=== PATIENT | female | born 1950 | race Caucasian/White ===

== ENCOUNTER → 2016-12-10 | Outpatient (REF) | payer OTHER ==
[~2016-12-10] MED LIST: ASPI81TA11 PO; CETI10TA PO; DILA100C PO; HYDR12.55 PO; IRBE150T12 PO; ISOS30TA4 PO; LIDO5DIS36 TD; LUTE6TAB2 PO; POTA10CA PO; PRIM250T5 PO; REFRESH OU; ventolin inhaler INH
[2016-12-10 13:36] LABS: INR 1.03
== END ==
LOC: M LABDRAW1 12:49
PROVIDERS: ATTEND Physical Medicine & Rehabilitation
DX: Z01.812 Encounter for preprocedural laboratory examination (principal); M48.06 Spinal stenosis, lumbar region

== ENCOUNTER → 2017-03-20 | Outpatient (CLI) | payer MEDICARE ==
[~2017-03-20] MED LIST changes: +BREO1INH3 INH; +COMBAER6 INH; +FLON1SPR
--- NOTE | 2017-03-20 11:54 | REP ---
Chest two views HISTORY: Hypertension Comparison: 07/18/2016 An increase in interstitial markings is present in the lungs consistent with chronic interstitial fibrosis. The heart is normal in size. The pulmonary vasculature is normal in appearance. The bony structure is intact. IMPRESSION: Chronic interstitial fibrosis. Signed by Ata Baires MD 03/20/2017 11:45 A
[2017-03-20 11:57] LABS: INR 0.97
[2017-03-20 11:59] LABS: MEAN CORPUSCULAR HEMOGLOBIN 30.8 pg (27.0-33.0); MEAN CORPUSCULAR VOLUME 90.8 fl (80.0-96.0); RED CELL DISTRIBUTION WIDTH 13.7 % (11.5-14.5); WHITE BLOOD COUNT 5.5 K/mm3 (4.0-10.0)
[2017-03-20 12:26] LABS: ALBUMIN/GLOBULIN RATIO 1.33 (1.00-1.93); ALKALINE PHOSPHATASE 119 U/L (45-117); ALT/SGPT 25 U/L (12-78); ANION GAP 8 MEQ/L (8-16); AST/SGOT 16 U/L (15-37); BILIRUBIN,TOTAL 0.2 MG/DL (0.2-1.0); BLOOD UREA NITROGEN 17 MG/DL (7-18); CALCIUM LEVEL 8.8 MG/DL (8.8-10.2); CARBON DIOXIDE LEVEL 30 MEQ/L (21-32); CHLORIDE LEVEL 98 MEQ/L (98-107); CREATININE FOR GFR 0.73 MG/DL (0.55-1.02); GLOMERULAR FILTRATION RATE > 60.0 (>45); GLUCOSE, FASTING 106 MG/DL (80-110); POTASSIUM SERUM 4.5 MEQ/L (3.5-5.1); SODIUM LEVEL 136 MEQ/L (136-145)
--- NOTE | 2017-03-21 08:02 | ECGEPIP ---
Stationary ECG Study [facility] Test Date: 2017-03-20 Pat Name: JACINTO VENTURA Department: Room: - Gender: F Marketing Research Intern: : 1950 Requested By: Juan José Rojas Order Number: [id number] Reading MD: Odilon Banks Measurements Intervals [place] Rate: 61 P: 29 TX: 227 QRS: 42 QRSD: 101 T: 44 QT: 378 QTc: 383 Interpretive Statements Normal sinus rhythm with first degree AV block Otherwise normal EKG No significant change when compared to prior tracing of 06/02/2016 Electronically Signed On 03-21-2017 8:01:48 EDT by Odilon Banks
== END ==
LOC: M ADMPAT 10:15
PROVIDERS: ATTEND Orthopaedic Surgery
DX: Z01.810 Encounter for preprocedural cardiovascular examination (principal); J84.10 Pulmonary fibrosis, unspecified; M17.12 Unilateral primary osteoarthritis, left knee; I10 Essential (primary) hypertension; Z79.01 Long term (current) use of anticoagulants; M48.06 Spinal stenosis, lumbar region

== ENCOUNTER 2017-04-06 10:42 | Inpatient (IN) | payer MEDICARE ==
--- NOTE | 2017-03-31 11:55 | HPE ---
DATE OF ADMISSION: 04/06/2017 ATTENDING PHYSICIAN: Juan José Rojas MD CHIEF COMPLAINT: Left knee pain and stiffness. HISTORY: Danielle martin is a pleasant 66-year-old female with progressively worsening left knee pain and stiffness. She has failed to improve with conservative management. She has elected for surgery for her continued symptoms with weightbearing activities and activities of daily living. She has consented for a left total knee arthroplasty by Dr. Rojas. Medical optimization pending with Diane Srivastava and is not available today for review. CURRENT MEDICATIONS: - primidone 250 mg - Klor-Con 10 mEq - hydrochlorothiazide 50 mg - baby aspirin - lutein 6 mg - phenytoin 100 mg - irbesartan 150 mg - isosorbide extended release 30 mg - allergy relief 10 mg - Refresh Tears - ventolin inhaler - Combivent inhaler - Flonase inhaler - Breo Ellipta inhaler ALLERGIES: No known drug allergies. MEDICAL HISTORY: Essential hypertension, epilepsy, chronic obstructive pulmonary disease, seasonal allergies. SURGICAL HISTORY: Dilation and curettage (D and C) times two, tubal ligation, colonoscopy, cataract removal, neck surgery, eyelid surgery. SOCIAL HISTORY: The patient is a former smoker. Occasionally consumes alcohol. REVIEW OF SYSTEMS: The patient denies fevers, chills, nausea, vomiting, or diarrhea. She denies chest pain, shortness of breath, lightheadedness, dizziness, or headache. She denies any recent upper respiratory infection or urinary tract infection symptoms. EXAMINATION: A well nourished, well developed female, in no apparent distress. NECK: Supple without lymphadenopathy or jugular venous distention (JVD). LUNGS: Clear to auscultation bilaterally. HEART: Regular rate and rhythm. ABDOMEN: Bowel sounds are present. Abdomen is soft and nontender to palpation. MUSCULOSKELETAL: The patient is walking with a mild limp favoring the left side. She is using a cane. Inspection of the left knee revealed no gross abnormalities. Her skin is intact. There is a little tenderness to palpation over the lateral joint line. She does have normal motion and strength of the left knee. VITAL SIGNS: Height 5 feet 2 inches. Weight 168.4 pounds. Temperature 97. Blood pressure 150/68. Pulse 64. Respirations 12. LABORATORY DATA: Chest x-ray: Impression: Chronic interstitial fibrosis. Electrocardiogram (EKG): Normal sinus rhythm with 1st-degree AV block. Nasal swabs show normal ayaz. Urinalysis positive for 1+ bacteria. Urine culture shows no growth. Complete blood count: WBC is 5.5, RBC is 4.18, hemoglobin 12.9, hematocrit 38, platelets 248, erythrocyte sedimentation rate is 11. Prothrombin time 13, INR 0.97. Comprehensive metabolic profile: Fasting glucose 106, BUN 17, creatinine for GFR 0.73, GFR greater than 60. Sodium 136, potassium 4.5, chloride 98, carbon dioxide 30, anion gap 8, calcium 8.8, AST 16, ALT 25, alkaline phosphatase elevated at 119, total bilirubin 0.2, total protein 7.0, albumin 4.0, albumin globulin ratio 1.33. DIAGNOSIS: Symptomatic osteoarthritis of the left knee with x-rays notable for end-stage degenerative changes. PLAN: The patient has consented for an elective left total knee arthroplasty by Dr. Rojas. JAYLON
[~2017-04-06] VITALS: Ht 152.4 cm; Wt 76.2 kg
[2017-04-06] MEDS: CETIRIZINE (ZyrTEC) 10 MG TAB PO SCH (09:00)
[2017-04-06] MEDS: ASPIRIN 81 MG ENTERIC TAB PO SCH (09:00)
[2017-04-06] MEDS: POTASSIUM CHLORIDE 10 MEQ SR TABLET PO SCH (09:00)
[~2017-04-06 10:42] MED LIST changes: +BUPIVACAINE HCL 0.25% 30 ML VIAL As Ordered ONE; +EPINEPHrine INJ 1 MG/ML 1ML VIAL/AMP As Ordered ONE; +TRANEXAMIC ACID 100 MG/ML 10ML VIAL As Ordered ONE; +ceFAZolin 1GM INJ (J0690) As Ordered ONE
[2017-04-06] MEDS ORDERED: LR 1,000 ML IV SCH ×2 (11:00→15:00)
[2017-04-06] MEDS ORDERED: LR 1,000 ML IV ONE (11:00)
[2017-04-06] MEDS ORDERED: MIDAZOLAM INJ 2 MG/2 ML VIAL (J2250) As Ordered ONE ×2 (11:45→13:03)
[2017-04-06] MEDS ORDERED: fentaNYL 100 MCG/2 ML INJECTION (J3010) As Ordered ONE ×3 (11:45→13:03)
--- NOTE | 2017-04-06 12:37 | IPN ---
DATE: 04/06/2017 Patient seen and examined. She wished to have a left total knee arthroplasty. This side has been painful for quite some time. She understands the nature this, the risks of bleeding, infection, damage to nerves, vessels, persistent pain, wear loosening, blood clots, medical problems, , among others. Plan on doing a left PFC sigma total knee arthroplasty.
[2017-04-06] MEDS ORDERED: MIDAZOLAM INJ 2 MG/2 ML VIAL (J2250) IV ONE (12:45)
[2017-04-06] MEDS ORDERED: fentaNYL 100 MCG/2 ML INJECTION (J3010) IV ONE (12:45)
[2017-04-06] MEDS ORDERED: PROPOFOL 200 MG/20 ML VIAL As Ordered ONE (13:03)
[2017-04-06] MEDS ORDERED: ePHEDrine SULFATE 25 MG/5 ML(5MG/ML) SYRINGE As Ordered ONE (13:26)
[2017-04-06] MEDS ORDERED: dexameTHASONE 10 MG/1 ML VIAL PRES.FREE (J1100) ONE (13:29)
[2017-04-06] MEDS ORDERED: ROPIvacaine 0.5% 30 ML INJECTION (J2795) ONE (13:29)
[2017-04-06] MEDS ORDERED: MORPHINE 1MG/ML IN 0.9% NACL 100ML IV BAG As Ordered ONE (14:32)
[2017-04-06] MEDS ORDERED: PERCOCET 5MG/325MG TAB PO PRN (15:00)
[2017-04-06] MEDS ORDERED: ONDANSETRON 4MG/2ML VIAL (J2405) IV PRN ×3 (15:00)
[2017-04-06] MEDS ORDERED: diphenhydrAMINE INJ 50MG/ML VIAL (J1200) IV PRN (15:00)
[2017-04-06] MEDS ORDERED: ACETAMINOPHEN TAB 650MG DOSE (2X325MG) PO PRN (15:00)
[2017-04-06] MEDS ORDERED: fentaNYL 100 MCG/2 ML INJECTION (J3010) IV PRN (15:00)
[2017-04-06] MEDS ORDERED: METOCLOPRAMIDE INJ 10MG/2ML VIAL (J2765) IV PRN (15:00)
[2017-04-06] MEDS ORDERED: NALBUPHINE HCL 10 MG/ML AMP (J2300) IV PRN (15:00)
[2017-04-06] MEDS ORDERED: NALOXONE INJ 0.4 MG/1 ML VIAL (J2310) IV PRN (15:00)
[2017-04-06] MEDS ORDERED: MORPHINE 1MG/ML IN 0.9% NACL 100ML IV BAG IV PRN (15:00)
[2017-04-06] MEDS ORDERED: FLEET ENEMA PR PRN (15:00)
[2017-04-06] MEDS ORDERED: PATIENT IS CURRENTLY ON AN ON-Q PAIN BUSTER PAIN RELIEF SYSTEM XX SCH (15:00)
[2017-04-06] MEDS ORDERED: MORPHINE 2 MG/ML 1ML SYRINGE IV PRN (15:00)
[2017-04-06] MEDS ORDERED: EPIDURAL/PCA KEYS XX PRN (15:00)
[2017-04-06] MEDS ORDERED: IPRATROPIUM 0.5MG/ALBUTEROL 2.5MG INH SOL UD 3ML (DUONEB)(J7620) NEB PRN (15:00)
--- NOTE | 2017-04-06 15:33 | CR ---
DATE OF CONSULTATION: 04/06/2017 PRIMARY CARE PROVIDER: Diane Srivastava MD REFERRING PHYSICIAN: Juan José Rojas MD REASON FOR CONSULTATION: Medical management. HISTORY OF PRESENT ILLNESS: This patient is a 66-year-old female with a past medical history significant for epilepsy, questionable emphysema, right lung cancer, status post wedge resection, hypertension, who presented to [facility] on April 06, 2017 for left knee replacement. The patient has severe osteoarthritis of the left knee to the extent that it is starting to interfere with the patient's daily activity functioning and the pain became unbearable. Therefore, the patient saw her primary care doctor, Dr. Diane Srivastava and preoperative clearance was performed on March 24, 2017. The patient had a left knee replacement by Dr. Juan José Rojas on April 06, 2017. The patient seen postoperatively. The patient denies any complaint of acute changes. ALLERGIES: No known drug allergies. PAST MEDICAL HISTORY: Questionable emphysema, seen by Dr. Causey. History of right lung cancer, status post wedge resection by Dr. Moss May 2016. Hypertension. History of epilepsy. PAST SURGICAL HISTORY: Dilation and curettage (D and C). Tubal ligation. Anterior cervical discectomy and fusion (ACDF) by Dr. Swann. Right lung wedge resection by Dr. Moss. SOCIAL HISTORY: The patient used to smoke one pack daily for 40 years. Quit 10 years ago. Drinks alcohol occasionally. Denies recreational drug use. REVIEW OF SYSTEMS: GENERAL: No fever, no chills. HEENT: No vision changes, auditory changes. CARDIOVASCULAR: No chest pain, no palpitations. RESPIRATORY: History of questionable emphysema. Breathing treatments at home. Currently does not have a cough or sputum production. GI: No nausea, no vomiting. No abdominal pain or diarrhea. MUSCULOSKELETAL: Severe osteoarthritis of the left knee. NEUROLOGICAL: No numbness or tingling. OBJECTIVE: VITAL SIGNS: Heart rate 68, blood pressure is 124/80, temperature is 98.6. GENERAL: Morbidly obese. No sign of acute distress. Alert and oriented times three. HEENT: Normocephalic, atraumatic. Extraocular movements grossly intact. CARDIOVASCULAR: Positive S1, S2, regular rate. LUNGS: Clear to auscultation bilaterally. ABDOMEN: Soft, nontender, nondistended. Bowel sounds present. No rebound. No guarding. EXTREMITIES: No edema. No cyanosis. Left knee is wrapped with dressing and bandage. No active bleeding noted. LABORATORY DATA: New labs were ordered. Will follow. ASSESSMENT AND PLAN: 1. Left knee total replacement by Dr. Jaun José Rojas on April 06, 2017. Will refer the diet, activity level, anticoagulation, and pain control to the primary orthopedic team. 2. Hypertension. The patient's blood pressure currently is in the satisfactory range. The patient actually has a blood pressure of 106/58. The blood pressure medication is on hold at this moment. 3. History of seizure disorder. Continue home medications. 4. History of right lung cancer, status post resection by Dr. Moss in May 2016. Pathology showed adenocarcinoma of the lung, moderately differentiated. 5. Questionable history of emphysema. Will continue the patient's breathing treatments. The patient was seen by Dr. Causey in outpatient setting. 6. Deep venous thrombosis (DVT) prophylaxis per primary orthopedic team. VEROD
[2017-04-06] MEDS ORDERED: WARFARIN SOD 5 MG TAB PO SCH (17:00)
--- NOTE | 2017-04-06 17:20 | RO ---
DATE OF PROCEDURE: 04/06/2017 PREOPERATIVE DIAGNOSIS: Left knee osteoarthritis. POSTOPERATIVE DIAGNOSIS: Left knee osteoarthritis. OPERATIVE PROCEDURE: Left total knee arthroplasty using a PFC rotating platform cruciate retaining size 2 femur, size 2 tibia, 12.5 polyethylene 32 patellar button. SURGEON: Juan José Rojas MD FOOD ASSEMBLER: HAIM Rodriguez ANESTHESIA: Spinal. ESTIMATED BLOOD LOSS: Less than 50 mL. COMPLICATIONS: None. INDICATIONS: 66-year woman who has had some gradually worsening arthritis, has severe arthritis on x-ray; had failed conservative management and wished to go ahead with surgical treatment. She understood the nature of this, risks of bleeding, infection, damage to nerves, vessels, persistent pain, blood clots, wear, loosening, medical problems, among others. DESCRIPTION OF PROCEDURE: The patient taken to the operating room and placed in the supine position after spinal anesthesia was induced. The left lower extremity was prepped and draped in the usual sterile fashion. Tourniquet was placed and inflated. A time-out was performed. I then created a longitudinal incision over the anterior aspect and sharp dissection was carried down to subcutaneous tissue. I then created a medial parapatellar arthrotomy in the usual fashion, everted the patella; flexed the knee up, did a medial release as well and then used the canal initiating reamer followed by the intramedullary guide set at 5 degrees of valgus, 10 mm cut. This was pinned in place by the oral surgery assistant. The distal femoral cut was made. I then sized the femur to be a 2.5 and made the pin holes in the end of the femur. Placed a 4 in 1 cutting block and made the remaining cuts. Protecting the soft tissues at all times. I then prepared the tibia. The tibial alignment guide was placed in the appropriate amount of valgus posterior slope. This pinned in place about 4 mm off the low side and then I used oscillating saw to remove the bone from proximal tibia. I then used the audio/video engineer to remove soft tissue and osteophytes from either side of the knee. Controlled hemostasis with a cautery. I then used trial blocks, spacer blocks and felt like she still was a little tight in flexion and the 12.5 seemed to be appropriate in extension. I decided to downsize the femur to a 2 so the 2.5 cutting block was then replaced back on to the end of the femur through the same holes. I then downsized to the 2 and made the cuts. Again, protecting soft tissues. Prepared the tibial tray and I used the spacer blocks again at this point and they seemed to have excellent stability and alignment in flexion/extension. The tibial tray size 2 was placed on the tibia. This was pinned in place. I used the drill followed by the broach and the trial components were then inserted. The 2 femur fit very well. The 12.5 seemed to be in excellent stability in flexion/extension. Alignment was excellent. I then freehand cut the patella moving about 6 or 7 mm of bone, sized to be a 32. The drill holes were placed and the patella trial was placed and it tracked appropriately. Drill holes were placed in the end of the femur. The oral surgery assistant prepared the bone cement in the modern technique on the back table. I then irrigated copiously after removing the trial components and then cemented on the tibial tray; impacted this in place. The tibial polyethylene was inserted and then cemented on the femoral component and removed excess bone cement. Brought the knee out in extension, cemented on the patella, held this in place with a clamp. Again removed excess bone cement. Irrigated copiously, then used the TXA solution. I closed the deep layer with #1 Vicryl suture in interrupted stitches in several spots and then used the running Stratafix suture in either direction with the oral surgery assistant helping. We irrigated at each level. There was a watertight closure. I flexed the knee up and there is no clicking and excellent range of motion, stability and alignment were noted. Closed the subcu with #2-0 Vicryl, skin with sabiha. The PainBuster was inserted through the superolateral aspect of the knee and this was injected with 10 mL of Marcaine. This was secured to the skin. Sterile dressing was applied. Tourniquet was deflated. She was taken to recovery room in stable condition. There were no known complications. The plan will be routine postop for knee replacement.
[2017-04-06 17:30] VITALS: BP 157/74
[2017-04-06] MEDS: PHENYTOIN ER 100 MG CAP PO SCH ×2 (18:16→20:59)
[2017-04-06] MEDS: LR 1,000 ML IV SCH (18:17)
[2017-04-06 18:30] VITALS: BP 153/69
[2017-04-06 19:30] VITALS: BP 133/59
[2017-04-06 20:30] VITALS: BP 135/59
[2017-04-06] MEDS: PRIMIDONE 250 MG TAB PO SCH (20:59)
[2017-04-06 21:30] VITALS: BP 138/58
[2017-04-07] MEDS: LR 1,000 ML IV SCH (04:20)
[2017-04-07 06:00] VITALS: BP 118/56
[2017-04-07] MEDS ORDERED: ONDANSETRON 4 MG TAB (S0181) PO PRN (06:45)
[2017-04-07] MEDS ORDERED: PERCOCET 5MG/325MG TAB PO PRN (06:45)
[2017-04-07 07:33] LABS: INR 1.17
[2017-04-07 07:34] LABS: MEAN CORPUSCULAR HEMOGLOBIN 29.7 pg (27.0-33.0); MEAN CORPUSCULAR HGB CONC 31.7 g/dl (32.0-36.5); MEAN CORPUSCULAR VOLUME 93.5 fl (80.0-96.0); RED CELL DISTRIBUTION WIDTH 14.1 % (11.5-14.5); WHITE BLOOD COUNT 7.7 K/mm3 (4.0-10.0)
[2017-04-07 07:58] LABS: ANION GAP 6 MEQ/L (8-16); BLOOD UREA NITROGEN 16 MG/DL (7-18); CALCIUM LEVEL 8.3 MG/DL (8.8-10.2); CARBON DIOXIDE LEVEL 32 MEQ/L (21-32); CHLORIDE LEVEL 103 MEQ/L (98-107); CREATININE FOR GFR 0.88 MG/DL (0.55-1.02); GLOMERULAR FILTRATION RATE > 60.0 (>45); GLUCOSE, FASTING 126 MG/DL (80-110); POTASSIUM SERUM 4.5 MEQ/L (3.5-5.1); SODIUM LEVEL 141 MEQ/L (136-145)
[2017-04-07] MEDS: FLUTICASONE PROP 0.05% NASAL SPRAY 16 GM (FLONASE) SCH (08:07)
[2017-04-07] MEDS: MOM 30ML SUSPENSION UDC PO SCH (08:07)
[2017-04-07] MEDS: PRIMIDONE 250 MG TAB PO SCH ×2 (08:08→20:08)
[2017-04-07] MEDS: SENOKOT S TAB PO SCH ×2 (08:08→20:08)
[2017-04-07] MEDS: ASPIRIN 81 MG ENTERIC TAB PO SCH (08:08)
[2017-04-07] MEDS: POTASSIUM CHLORIDE 10 MEQ SR TABLET PO SCH (08:08)
[2017-04-07] MEDS: PHENYTOIN ER 100 MG CAP PO SCH ×3 (08:08→20:08)
[2017-04-07] MEDS: CETIRIZINE (ZyrTEC) 10 MG TAB PO SCH (08:08)
[2017-04-07] MEDS: MIRALAX *UNIT DOSE* 17GM PACKET PO SCH (08:09)
--- NOTE | 2017-04-07 11:00 | REP ---
Clinical: Status post knee replacement. Technique AP and cross-table lateral views. Findings: The patient is status post left knee replacement with normal positioning and appearance to the femoral and tibial components. Overlying postsurgical changes appreciated. Impression: Status post left knee replacement. Signed by Hitesh Calles MD 04/07/2017 10:52 A
[2017-04-07 14:00] VITALS: BP 137/63
[2017-04-07] MEDS ORDERED: WARFARIN SOD 5 MG TAB PO ONE (17:00)
[2017-04-07] MEDS: PERCOCET 5MG/325MG TAB PO PRN ×2 (18:10→23:18)
[2017-04-07 22:00] VITALS: BP 130/60
[2017-04-08] MEDS: PERCOCET 5MG/325MG TAB PO PRN ×3 (04:00→21:20)
[2017-04-08 06:00] VITALS: BP 140/55
[2017-04-08 06:49] LABS: MEAN CORPUSCULAR HEMOGLOBIN 30.6 pg (27.0-33.0); MEAN CORPUSCULAR HGB CONC 33.3 g/dl (32.0-36.5); MEAN CORPUSCULAR VOLUME 92.1 fl (80.0-96.0); RED CELL DISTRIBUTION WIDTH 14.1 % (11.5-14.5); WHITE BLOOD COUNT 7.1 K/mm3 (4.0-10.0)
[2017-04-08 06:55] LABS: INR 2.27
[2017-04-08 07:07] LABS: ANION GAP 3 MEQ/L (8-16); BLOOD UREA NITROGEN 10 MG/DL (7-18); CALCIUM LEVEL 7.5 MG/DL (8.8-10.2); CARBON DIOXIDE LEVEL 33 MEQ/L (21-32); CHLORIDE LEVEL 103 MEQ/L (98-107); CREATININE FOR GFR 0.55 MG/DL (0.55-1.02); GLOMERULAR FILTRATION RATE > 60.0 (>45); GLUCOSE, FASTING 119 MG/DL (80-110); POTASSIUM SERUM 3.8 MEQ/L (3.5-5.1); SODIUM LEVEL 139 MEQ/L (136-145)
--- NOTE | 2017-04-08 08:05 | REP ---
Clinical: Fever . Comparison: 03/20/2017 . Findings: The mediastinum and cardiac silhouette are stable and within normal limits for portable technique. The lung gudino demonstrate chronic and postsurgical changes primarily involving the right hemithorax without acute consolidation, effusion, or pneumothorax. Skeletal structures are intact. Impression: Chronic changes predominantly involving the right hemithorax. No obvious acute cardiopulmonary process. Signed by Hitesh Calles MD 04/08/2017 07:57 A
[2017-04-08] MEDS: MIRALAX *UNIT DOSE* 17GM PACKET PO SCH (09:49)
[2017-04-08] MEDS: PHENYTOIN ER 100 MG CAP PO SCH ×3 (09:50→21:20)
[2017-04-08] MEDS: MOM 30ML SUSPENSION UDC PO SCH (09:50)
[2017-04-08] MEDS: POTASSIUM CHLORIDE 10 MEQ SR TABLET PO SCH (09:50)
[2017-04-08] MEDS: CETIRIZINE (ZyrTEC) 10 MG TAB PO SCH (09:50)
[2017-04-08] MEDS: FLUTICASONE PROP 0.05% NASAL SPRAY 16 GM (FLONASE) SCH (09:50)
[2017-04-08] MEDS: PRIMIDONE 250 MG TAB PO SCH ×2 (09:50→21:19)
[2017-04-08] MEDS: ASPIRIN 81 MG ENTERIC TAB PO SCH (09:51)
[2017-04-08] MEDS: SENOKOT S TAB PO SCH ×2 (09:51→21:00)
--- NOTE | 2017-04-08 13:40 | IPNPDOC ---
Text Note Date of Service The patient was seen on 04/07/17. NOTE Subjective: Pt feels well. Denies any complaints. Objective: Vitals: (see below) General: No acute distress, laying comfortably in bed. HEENT: Moist mucous membranes. Neck: No JVD or lymphadenopathy Cardiac: RRR, No murmurs Pulm: Clear to auscultation b/l. No wheezing, rhonchi Abd: NT/ND + BS Ext: No edema or cyanosis. Left knee with some swelling. No bleeding. Distal pulses intact. No erythema. Labs (see below) Images: Assessment/Plan 1. POD #1 s/p Left total knee arthroplasty - pain and DVT prophy management per ortho 2. HTN - controlled. 3. H/o seizures - cont home meds 4. H/o right lung cancer s/p resection by Dr. Moss in May 2016. Adenocarcinoma of the lung - moderately differentiated. 5. Emphysema - stable. Not wheezing. Cont home nebs. DVT prophy: Per orthopedics. VS,Fishbone, I+O VS, Fishbone, I+O Laboratory Tests 04/08/17 06:20 Red Blood Count 3.41 L, Mean Corpuscular Volume 92.1, Mean Corpuscular Hemoglobin 30.6, Mean Corpuscular Hemoglobin Concent 33.3, Red Cell Distribution Width 14.1, Calcium Level 7.5 L Vital Signs Date Time Temp Pulse Resp B/P (MAP) Pulse Ox O2 Delivery O2 Flow Rate FiO2 04/08/17 10:21 12 04/08/17 06:00 100.0 82 140/55 (83) 94 Room Air 04/07/17 06:00 2.0 I&O- Last 24 Hours up to 6 AM 04/08/17 05:59 Intake Total 1750 ml Output Total 1050 ml Balance 700 ml HANK SIMON MD April 08, 2017 13:40
--- NOTE | 2017-04-08 13:41 | IPNPDOC ---
Text Note Date of Service The patient was seen on 04/08/17. NOTE Subjective: Pt feels well. Denies any complaints. Objective: Vitals: (see below) General: No acute distress, laying comfortably in bed. HEENT: Moist mucous membranes. Neck: No JVD or lymphadenopathy Cardiac: RRR, No murmurs Pulm: Clear to auscultation b/l. No wheezing, rhonchi Abd: NT/ND + BS Ext: No edema or cyanosis. Left knee with some swelling. No bleeding. Distal pulses intact. No erythema. Labs (see below) Images: Assessment/Plan 1. POD #2 s/p Left total knee arthroplasty - pain and DVT prophy management per ortho 2. Fevers - likely post op atelectasis. CXR negative. UA pending. No dysuria. No diarrhea or abd pain. No source of infection. Blood cx pending. 3. HTN - controlled. 4. H/o seizures - cont home meds 5. H/o right lung cancer s/p resection by Dr. Moss in May 2016. Adenocarcinoma of the lung - moderately differentiated. 6. Emphysema - stable. Not wheezing. Cont home nebs. DVT prophy: Per orthopedics. VS,Fishbone, I+O VS, Fishbone, I+O Laboratory Tests 04/08/17 06:20 Red Blood Count 3.41 L, Mean Corpuscular Volume 92.1, Mean Corpuscular Hemoglobin 30.6, Mean Corpuscular Hemoglobin Concent 33.3, Red Cell Distribution Width 14.1, Calcium Level 7.5 L Vital Signs Date Time Temp Pulse Resp B/P (MAP) Pulse Ox O2 Delivery O2 Flow Rate FiO2 04/08/17 10:21 12 04/08/17 06:00 100.0 82 140/55 (83) 94 Room Air 04/07/17 06:00 2.0 I&O- Last 24 Hours up to 6 AM 04/08/17 05:59 Intake Total 1750 ml Output Total 1050 ml Balance 700 ml HANK SIMON MD April 08, 2017 13:41
[2017-04-08 14:00] VITALS: BP 140/83
[2017-04-08 22:00] VITALS: BP 135/50
[2017-04-09] MEDS: PERCOCET 5MG/325MG TAB PO PRN (05:33)
[2017-04-09 06:00] VITALS: BP 146/65
[2017-04-09 06:59] LABS: INR 1.69
[2017-04-09 07:07] LABS: ANION GAP 6 MEQ/L (8-16); BLOOD UREA NITROGEN 10 MG/DL (7-18); CALCIUM LEVEL 7.5 MG/DL (8.8-10.2); CARBON DIOXIDE LEVEL 28 MEQ/L (21-32); CHLORIDE LEVEL 105 MEQ/L (98-107); CREATININE FOR GFR 0.51 MG/DL (0.55-1.02); GLOMERULAR FILTRATION RATE > 60.0 (>45); GLUCOSE, FASTING 130 MG/DL (80-110); POTASSIUM SERUM 3.9 MEQ/L (3.5-5.1); SODIUM LEVEL 139 MEQ/L (136-145)
[2017-04-09 07:25] LABS: MEAN CORPUSCULAR HEMOGLOBIN 29.6 pg (27.0-33.0); MEAN CORPUSCULAR HGB CONC 32.5 g/dl (32.0-36.5)
[2017-04-09] MEDS: SENOKOT S TAB PO SCH (09:00)
[2017-04-09] MEDS: MIRALAX *UNIT DOSE* 17GM PACKET PO SCH (09:00)
[2017-04-09] MEDS: MOM 30ML SUSPENSION UDC PO SCH (09:00)
[2017-04-09] MEDS ORDERED: PERC5TAB6 PO (09:03)
[2017-04-09] MEDS ORDERED: COUM2.5T11 PO (09:03)
[2017-04-09] MEDS: ASPIRIN 81 MG ENTERIC TAB PO SCH (09:19)
[2017-04-09] MEDS: CETIRIZINE (ZyrTEC) 10 MG TAB PO SCH (09:19)
[2017-04-09] MEDS: PHENYTOIN ER 100 MG CAP PO SCH (09:19)
[2017-04-09] MEDS: POTASSIUM CHLORIDE 10 MEQ SR TABLET PO SCH (09:20)
[2017-04-09] MEDS: FLUTICASONE PROP 0.05% NASAL SPRAY 16 GM (FLONASE) SCH (09:22)
[2017-04-09] MEDS: PRIMIDONE 250 MG TAB PO SCH (09:22)
[2017-04-09] MEDS ORDERED: IRBE75TA5 PO (11:55)
--- NOTE | 2017-04-09 14:12 | IPNPDOC ---
Text Note Date of Service The patient was seen on 04/09/17. NOTE Subjective: Pt feels well. Denies any complaints. Objective: Vitals: (see below) General: No acute distress, laying comfortably in bed. HEENT: Moist mucous membranes. Neck: No JVD or lymphadenopathy Cardiac: RRR, No murmurs Pulm: Clear to auscultation b/l. No wheezing, rhonchi Abd: NT/ND + BS Ext: No edema or cyanosis. Left knee with some swelling. No bleeding. Distal pulses intact. No erythema. Labs (see below) Images: CXR 04/08/17 Impression: Chronic changes predominantly involving the right hemithorax. No obvious acute cardiopulmonary process. Assessment/Plan 1. POD #3 s/p Left total knee arthroplasty - pain and DVT prophy management per ortho 2. Fevers - likely post op atelectasis. CXR negative. UA pending. No dysuria. No diarrhea or abd pain. No source of infection. Blood cx pending. 3. HTN - controlled. 2/ ARB dose restarted. 4. H/o seizures - cont home meds 5. H/o right lung cancer s/p resection by Dr. Moss in May 2016. Adenocarcinoma of the lung - moderately differentiated. 6. Emphysema - stable. Not wheezing. Cont home nebs. Will need ASA restarted once patient is off of coumadin. DVT prophy: Per orthopedics. VS,Fishbone, I+O VS, Fishbone, I+O Laboratory Tests 04/09/17 06:33 Calcium Level 7.5 L 04/09/17 07:14 Red Blood Count 3.23 L, Mean Corpuscular Volume 91.0, Mean Corpuscular Hemoglobin 29.6, Mean Corpuscular Hemoglobin Concent 32.5, Red Cell Distribution Width 14.0 Vital Signs Date Time Temp Pulse Resp B/P (MAP) Pulse Ox O2 Delivery O2 Flow Rate FiO2 04/09/17 11:28 98.7 04/09/17 06:03 18 04/09/17 06:00 86 146/65 (92) 98 Room Air 04/07/17 06:00 2.0 I&O- Last 24 Hours up to 6 AM 04/09/17 06:00 Intake Total 1700 ml Output Total 2000 ml Balance -300 ml HANK SIMON MD April 09, 2017 14:12
--- NOTE | 2017-04-13 20:00 | DSES ---
DATE OF ADMISSION: 04/06/2017 DATE OF DISCHARGE: 04/09/2017 ATTENDING PHYSICIAN: Dr. Juan José Rojas ADMISSION DIAGNOSIS: Osteoarthritis left knee. OTHER DIAGNOSES: Hypertension, epilepsy, chronic obstructive pulmonary disease (COPD), seasonal allergies. DISCHARGE DIAGNOSIS: Osteoarthritis left knee status post left total knee arthroplasty. OPERATION PERFORMED: Left total knee arthroplasty. HISTORY: This is a pleasant 66-year-old female with progressively worsening left knee pain and stiffness. She failed to improve with conservative management. She was admitted for elective knee replacement on the left side. HOSPITAL COURSE: The patient was admitted on day of surgery, underwent a left total knee arthroplasty which was uneventful. She did well in the postoperative period and hospital course was without complications. She was up with physical therapy per their protocol and pain was controlled. On day of discharge she was weightbearing as tolerated on her left lower extremity. She will move her left knee to prevent stiffness. She will use adjusted dose Coumadin and thromboembolism deterrent (RUTHIE) stockings for 30 days postoperative for deep venous thrombosis (DVT) prophylaxis. She will resume her preoperative medications and diet. She was given instructions to include but not limited to wound monitoring and activity limitations. She will use oral pain medications for pain control. She will followup in our office in 10-14 days. Please refer to the medical record for further details.
== END 2017-04-09 12:25 | disposition home health service (06) | DRG 470 ==
LOC: M OR 10:42 → M MS5PR 16:30
PROVIDERS: ADMIT Orthopaedic Surgery; ATTEND Orthopaedic Surgery
PROC: 0SRD0J9 Replacement of Left Knee Joint with Synthetic Substitute, Cemented, Open Approach (ICD-10-PCS; principal; 2017-04-06 13:30)
DX: M17.12 Unilateral primary osteoarthritis, left knee (principal); I10 Essential (primary) hypertension; G40.909 Epilepsy, unspecified, not intractable, without status epilepticus; J44.9 Chronic obstructive pulmonary disease, unspecified; J30.2 Other seasonal allergic rhinitis; I44.0 Atrioventricular block, first degree; R50.82 Postprocedural fever; Z98.51 Tubal ligation status; Z79.82 Long term (current) use of aspirin; Z79.899 Other long term (current) drug therapy; Z87.891 Personal history of nicotine dependence; Z85.118 Personal history of other malignant neoplasm of bronchus and lung; Z90.2 Acquired absence of lung [part of]

== ENCOUNTER → 2017-04-13 | Outpatient (REF) | payer MEDICARE ==
[~2017-04-13] MED LIST changes: -BUPIVACAINE HCL 0.25% 30 ML VIAL As Ordered ONE; +COUM2.5T11 PO; -EPINEPHrine INJ 1 MG/ML 1ML VIAL/AMP As Ordered ONE; +IRBE75TA5 PO; +PERC5TAB6 PO; -TRANEXAMIC ACID 100 MG/ML 10ML VIAL As Ordered ONE; -ceFAZolin 1GM INJ (J0690) As Ordered ONE
[2017-04-13 13:35] LABS: INR 1.66
== END ==
LOC: M SHH 13:19
PROVIDERS: ATTEND Nurse Practitioner Family
DX: Z79.01 Long term (current) use of anticoagulants (principal)

== ENCOUNTER → 2017-04-16 | Outpatient (REF) | payer MEDICARE ==
[2017-04-16 12:27] LABS: INR 1.63
== END ==
LOC: M SHH 11:54
PROVIDERS: ATTEND Nurse Practitioner Family
DX: Z79.01 Long term (current) use of anticoagulants (principal)

== ENCOUNTER → 2017-04-21 | Outpatient (REF) | payer MEDICARE ==
[2017-04-21 13:32] LABS: INR 2.07
== END ==
LOC: M SHH 12:41
PROVIDERS: ATTEND Nurse Practitioner Family
DX: Z79.01 Long term (current) use of anticoagulants (principal)

== ENCOUNTER → 2017-04-23 | Outpatient (REF) | payer MEDICARE ==
[2017-04-23 14:21] LABS: INR 1.56
== END ==
LOC: M SHH 13:02
PROVIDERS: ATTEND Nurse Practitioner Family
DX: Z79.01 Long term (current) use of anticoagulants (principal)

== ENCOUNTER → 2017-04-27 | Outpatient (REF) | payer MEDICARE ==
[2017-04-27 12:17] LABS: INR 2.04
== END ==
LOC: M SHH 11:16
PROVIDERS: ATTEND Nurse Practitioner Family
DX: Z79.899 Other long term (current) drug therapy (principal)

== ENCOUNTER → 2017-04-30 | Outpatient (REF) | payer MEDICARE ==
[2017-04-30 11:35] LABS: INR 1.96
== END ==
LOC: M SHH 11:12
PROVIDERS: ATTEND Nurse Practitioner Family
DX: Z51.81 Encounter for therapeutic drug level monitoring (principal); Z79.01 Long term (current) use of anticoagulants

== ENCOUNTER → 2017-05-04 | Outpatient (REF) | payer MEDICARE ==
[2017-05-04 12:27] LABS: INR 1.62
== END ==
LOC: M SHH 11:56
PROVIDERS: ATTEND Nurse Practitioner Family
DX: Z51.81 Encounter for therapeutic drug level monitoring (principal); Z79.01 Long term (current) use of anticoagulants

== ENCOUNTER → 2022-03-06 | Outpatient (REF) | payer MEDICARE ==
[~2022-03-06] MED LIST changes: -ASPI81TA11 PO; +ASPI81TA78 PO; -COUM2.5T11 PO; +COUM2.5T17 PO; -IRBE150T12 PO; +IRBE150T7 PO; +IRBE75TA4 PO; -IRBE75TA5 PO; +ISOS1TAB35 PO; -ISOS30TA4 PO; -LIDO5DIS36 TD; +LIDO5DIS41 TD; +PERC5TAB12 PO; -PERC5TAB6 PO; +POTA-136 PO; -POTA10CA PO; -PRIM250T5 PO; +PRIM250T8 PO
[2022-03-06 14:32] LABS: APPEARANCE, URINE CLEAR (CLEAR); BACTERIA, URINE AUTO NEGATIVE (NEGATIVE); BILIRUBIN, URINE AUTO NEGATIVE (NEGATIVE); BLOOD, URINE BLOOD NEGATIVE (NEGATIVE); COLOR, URINE YELLOW (YELLOW); GLUCOSE, URINE (UA) AUTO NEGATIVE (NEGATIVE); KETONE, URINE AUTO NEGATIVE (NEGATIVE); LEUKOCYTE ESTERASE, URINE AUTO 1+ (NEGATIVE); NITRITE, URINE AUTO NEGATIVE (NEGATIVE); PROTEIN, URINE AUTO NEGATIVE (NEGATIVE); RBC, URINE AUTO 1 /HPF (0-3); SQUAMOUS EPITHELIAL CELL UR AU 3 /HPF (0-6); UROBILINOGEN, URINE AUTO 0.2 mg/dL (0.0-2.0); WBC, URINE AUTO 1 /HPF (0-3)
== END ==
LOC: M SMT 13:22
PROVIDERS: ATTEND Nurse Practitioner Women's Health
DX: R32 Unspecified urinary incontinence (principal)

== ENCOUNTER → 2023-06-30 | Outpatient (REF) | payer MEDICARE ==
[2023-06-30 14:20] LABS: APPEARANCE, URINE HAZY (CLEAR); BACTERIA, URINE AUTO NEGATIVE (NEGATIVE); BILIRUBIN, URINE AUTO NEGATIVE (NEGATIVE); BLOOD, URINE BLOOD NEGATIVE (NEGATIVE); COLOR, URINE YELLOW (YELLOW); GLUCOSE, URINE (UA) AUTO NEGATIVE (NEGATIVE); KETONE, URINE AUTO NEGATIVE (NEGATIVE); LEUKOCYTE ESTERASE, URINE AUTO 2+ (NEGATIVE); MUCUS, URINE SMALL (NEGATIVE); NITRITE, URINE AUTO NEGATIVE (NEGATIVE); PROTEIN, URINE AUTO NEGATIVE (NEGATIVE); RBC, URINE AUTO 0 /HPF (0-3); SPECIFIC GRAVITY URINE AUTO 1.017 (1.002-1.035); SQUAMOUS EPITHELIAL CELL UR AU 6 /HPF (0-6); UROBILINOGEN, URINE AUTO 0.2 mg/dL (0.0-2.0); WBC, URINE AUTO 2 /HPF (0-3)
== END ==
LOC: M SMT 13:10
PROVIDERS: ATTEND Physician Assistant
DX: R32 Unspecified urinary incontinence (principal)

== ENCOUNTER → 2023-08-31 | Outpatient (CLI) | payer MEDICARE | LOC: M PLARAD 10:33 | PROVIDERS: ATTEND Internal Medicine Pulmonary Disease | DX: R91.8 Other nonspecific abnormal finding of lung field (principal) | CPT/HCPCS: 78815; A9552 ==

== ENCOUNTER → 2024-07-28 | Outpatient (CLI) | payer OTHER, MEDICARE ==
[~2024-07-28] MED LIST changes: +IRBE150T27 PO; -IRBE150T7 PO; +IRBE75TA11 PO; -IRBE75TA4 PO
== END ==
LOC: M PLAIMG 14:31
PROVIDERS: ATTEND Physician Assistant
DX: M51.16 Intervertebral disc disorders with radiculopathy, lumbar region (principal); M51.36 Other intervertebral disc degeneration, lumbar region